=== PATIENT | female | born 1990 | race Caucasian/White ===

== ENCOUNTER 2018-09-17 10:11 | Emergency (ER) | payer OTHER ==
[2018-09-17 10:16] VITALS: BP 148/90; PULSE 90; RESP 18; TEMP 98.1
--- NOTE | 2018-09-17 10:27 | ED ---
General Adult HPI - General Chief complaint: Dental/Oral Stated complaint: dental pain/facial swelling Time Seen by Provider: 09/17/18 10:19 Source: patient, RN notes reviewed Mode of arrival: ambulatory Limitations: no limitations - History of Present Illness Initial comments: Patient's a 28-year-old female presented to the emergency room today with a chief complaint of increased dental pain over left lower side. Patient does admit to pain swelling. Patient states that he's been no drainage or foul taste. She does admit that she's had 2 bad tooth in this area but has not had time to get to surgeon to have them removed. Patient denies any other complaints or symptoms. Patient denies any recent fever, chills, shortness of breath, chest pain, back pain, abdominal pain, nausea or vomiting, headaches or visual changes, or any other complaints. - Related Data Home Medications Medication Instructions Recorded Confirmed Ywh-Saga-Xrdhg Acid 1 cap PO DAILY 12/12/15 12/12/15 [-U Capsule] Previous Rx's Medication Instructions Recorded Acetaminophen-Codeine 300-30mg 2 each PO Q4HR PRN #30 tab 12/14/15 [Tylenol w/codeine #3] Ibuprofen [Motrin] 600 mg PO Q6HR PRN #30 tab 12/14/15 Ibuprofen [Motrin] 600 mg PO Q6HR PRN #40 day 09/17/18 Penicillin V Potassium [Pen Vee K] 500 mg PO QID #40 tablet 09/17/18 Allergies Allergy/AdvReac Type Severity Reaction Status Date / Time No Known Allergies Allergy Verified 09/17/18 10:14 Review of Systems ROS Statement: Those systems with pertinent positive or pertinent negative responses have been documented in the HPI. ROS Other: All systems not noted in ROS Statement are negative. Past Medical History Past Medical History: No Reported History Additional Past Medical History / Comment(s): Obstetrical history: First was a section at 33 weeks for severe preeclampsia. This is her second . She's had care with me since 21 weeks. She did miss several appointments. Her blood type is A+, antibodies negative, rubella immune, RPR nonreactive, hepatitis B-, toxoplasmosis negative. Abnormal 1 hour but normal 3 hour glucose tolerance test. GBS negative History of Any Multi-Drug Resistant Organisms: None Reported Past Surgical History: Section Additional Past Surgical History / Comment(s): finger. Open Heart Surgery for Endocarditis at 12 years old Past Anesthesia/Blood Transfusion Reactions: No Reported Reaction Past Psychological History: No Psychological Hx Reported Smoking Status: Current every day smoker Past Alcohol Use History: None Reported Past Drug Use History: None Reported - Past Family History Mother Family Medical History: No Reported History General Exam - General Exam Comments Initial Comments: General: The patient is awake and alert, in no distress, and does not appear acutely ill. Eye: Pupils are equal, round and reactive to light. Extra-ocular movements are intact. No nystagmus. There is normal conjunctiva bilaterally. No signs of icterus. Ears, nose, mouth and throat: There are moist mucous membranes and no oral lesions. Patient does have tenderness over tooth #18 and 19. No dental abscess to drain. Uvula midline. Neck: The neck is supple, there is no tenderness or JVD. Musculoskeletal: Normal ROM, no tenderness. Sensation intact. Strength 5/5. Pulses equal bilaterally 2+. Neurological: A&O x 3. CN II-XII intact, There are no obvious motor or sensory deficits. Coordination appears grossly intact. Speech is normal. Skin: Skin is warm and dry and no rashes or lesions are noted. Psychiatric: Cooperative, appropriate mood & affect, normal judgment. Limitations: no limitations Course Vital Signs 09/17/18 10:14 Temperature 98.1 F Pulse Rate 90 Respiratory 18 Rate Blood Pressure 148/90 O2 Sat by Pulse 100 Oximetry Medical Decision Making - Medical Decision Making The patient will be started on antibiotics. She is advised to use hot and cold compresses as needed along with T bag of the inside of gumline with Orajel over- the-counter for symptoms. Patient advised follow-up with oral surgeon. Advised return if symptoms increase worsen. Disposition Clinical Impression: Dental abscess Disposition: HOME SELF-CARE Condition: Good Instructions: Dental Abscess (ED) Additional Instructions: Please follow-up with dentist and use antibiotic and pain medication as discussed. [facility], [place] [address] [phone]) (existing clients only) For new clients: [phone] [facility] Pay $50 for x-rays and the rest discovered [phone] Prescriptions: Ibuprofen [Motrin] 600 mg PO Q6HR PRN #40 day PRN Reason: Pain Penicillin V Potassium [Pen Vee K] 500 mg PO QID #40 tablet Is patient prescribed a controlled substance at d/c from ED?: No Referrals: None,Stated [Primary Care Provider] - 1-2 days Time of Disposition: 10:26
== END 2018-09-17 10:30 | disposition home or self-care (01) ==
LOC: EC 10:11
DX: K04.7 Periapical abscess without sinus (principal); F17.200 Nicotine dependence, unspecified, uncomplicated
CPT/HCPCS: 99282

== ENCOUNTER → 2024-05-18 | Outpatient (CLI) | payer OTHER ==
[2024-05-18 20:59] LABS: Basophils # (A) 0.04 X 10*3/uL (0.00-0.10); Basophils % (A) 0.5 %; Eosinophils # (A) 0.26 X 10*3/uL (0.04-0.35); HCT 40.6 % (37.2-46.3); HGB 13.5 g/dL (12.0-15.0); Lymphocytes # (A) 2.33 X 10*3/uL (0.90-5.00); Lymphocytes % (A) 26.5 %; MCH 28.7 pg (27.0-32.0); MCHC 33.3 g/dL (32.0-37.0); MCV 86.4 FL (80.0-97.0); Mean Platelet Volume 10.1 FL (9.5-12.2); Monocytes # (A) 0.86 X 10*3/uL (0.20-1.00); Monocytes % (A) 9.8 %; NRBC Per 100 WBC 0 X 10*3/uL (0.00-0.01); Neutrophils # (A) 5.27 X 10*3/uL (1.80-7.70); Neutrophils % (A) 59.9 %; Platelet Count 274 X 10*3/uL (140-440); RDW 13.8 % (11.5-14.5); WBC 8.79 X 10*3/uL (4.50-10.00)
== END | disposition home or self-care (01) ==
LOC: LABWHC1 13:55
PROVIDERS: ATTEND Obstetrics & Gynecology
DX: Z01.812 Encounter for preprocedural laboratory examination (principal); D06.9 Carcinoma in situ of cervix, unspecified
CPT/HCPCS: 36415; 85025

== ENCOUNTER 2024-07-20 09:50 | Day surgery (SDC) | payer OTHER ==
[2024-07-16 10:56] VITALS: BMI 25.7
--- NOTE | 2024-07-20 07:41 | P.HPOB ---
History of Present Illness H&P Date: 07/20/24 Chief Complaint: JULISA III 34 year old with severe cervical dysplasia presents for LEEP. Review of Systems All systems: negative Constitutional: Denies chills, Denies fever Eyes: denies blurred vision, denies pain Ears, nose, mouth and throat: Denies headache, Denies sore throat Cardiovascular: Denies chest pain, Denies shortness of breath Respiratory: Denies cough Gastrointestinal: Denies abdominal pain, Denies diarrhea, Denies nausea, Denies vomiting Genitourinary: Denies dysuria, Denies hematuria Musculoskeletal: Denies myalgias Integumentary: Denies pruritus, Denies rash Neurological: Denies numbness, Denies weakness Psychiatric: Denies anxiety, Denies depression Endocrine: Denies fatigue, Denies weight change Past Medical History Past Medical History: No Reported History Additional Past Medical History / Comment(s): hx. 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 Open Heart Surgery for Endocarditis age 12 Past Anesthesia/Blood Transfusion Reactions: No Reported Reaction Smoking Status: Current every day smoker - Past Family History Mother Family Medical History: No Reported History Medications and Allergies Home Medications Medication Instructions Recorded Confirmed Type Ibuprofen [Motrin] 600 mg PO Q6HR PRN #40 day 09/17/18 07/16/24 Rx Acetaminophen Tab [Tylenol Tab] 1,000 mg PO Q6HR PRN 05/13/24 07/16/24 History Buprenorphine/Naloxone 8Mg/2Mg 1 film SL QAM 05/13/24 07/16/24 History [Suboxone 8-2Mg Film] Dextroamphetamine/Amphetamine 20 mg PO BID 05/13/24 07/16/24 History [Adderall] Allergies Allergy/AdvReac Type Severity Reaction Status Date / Time No Known Allergies Allergy Verified 07/16/24 10:44 Exam Osteopathic Statement: *. No significant issues noted on an osteopathic structural exam other than those noted in the History and Physical/Consult. HEart: RRR Lungs: CTAB Abdomen: soft, nontender eXtremeties: neg rika's Assessment and Plan (1) Menorrhagia Status: Acute Code(s): N92.0 - EXCESSIVE AND FREQUENT MENSTRUATION WITH REGULAR CYCLE SNOMED Code(s): 206364269 Plan: 1. LUIS
[~2024-07-20 09:50] MED LIST: Pre Op ABX Message 1 EACH MISC MISCELLANE ONE
[2024-07-20] MEDS ORDERED: HYDROmorphone 0.5 MG/0.5 ML SYRINGE IVP PRN (10:04)
[2024-07-20] MEDS: IV FLUID CONTINUATION 1,000 ML IV ONE (10:37)
[2024-07-20] MEDS: LACTATED RINGERS 1,000 ML IV SCH (10:37)
[2024-07-20] MEDS: ONDANSETRON 4 MG/2 ML VIAL IVP ONE (10:40)
[2024-07-20] MEDS: DEXAMETHASONE SOD PHOSPHATE 4 MG/ML 1 ML VIAL IV ONE (10:41)
[2024-07-20] MEDS: SCOPOLAMINE 1 MG/72 HR PATCH TRANSDERM ONE (10:41)
[2024-07-20] MEDS: MIDAZOLAM 2 MG/2 ML VIAL IV PRN (10:42)
[2024-07-20] MEDS ORDERED: MIDAZOLAM 2 MG/2 ML VIAL ONE (10:47)
[2024-07-20] MEDS ORDERED: LIDOCAINE 1% INJ 10MG/ML (20 ML MDV) ONE (10:47)
[2024-07-20] MEDS ORDERED: PROPOFOL 10 MG/ML 20 ML VIAL IV ONE (10:47)
[2024-07-20] MEDS ORDERED: fentaNYL (PF) 50 MCG/ML 2 ML AMP ONE (10:47)
[2024-07-20] MEDS ORDERED: KETOROLAC 15 MG/ML 1 ML VIAL ONE (10:47)
[2024-07-20] MEDS: FERRIC SUBSULFATE (MONSELS) JAR TOPICAL ONE (11:11)
--- NOTE | 2024-07-20 11:21 | P.OP ---
Date of Procedure: 07/20/24 Preoperative Diagnosis: 1. severe dysplasia Postoperative Diagnosis: same Procedure(s) Performed: LEEP Anesthesia: MAC (LMA) Surgeon: Manjula Vazquez Estimated Blood Loss (ml): 5 IV fluids (ml): 300 Urine output (ml): 20 Pathology: other (cervical cone) Condition: stable Disposition: PACU Operative Findings: normal cervix Description of Procedure: patient is taken to the operating room where general anesthesia was obtained without difficulty. She is prepped draped in normal sterile fashion dorsal lithotomy position, legs placed in the candycane stirrups. Bladder was drained of all urine. [place] speculum was placed in vagina. The 2 cm loop cautery was used to first obtain a piece of the anterior lip and then to go back and scraped a piece of the posterior lip of the cervix. These specimens were sent to pathology. The crater of the cervix was then cauterized with the ball cautery. Monsel's was placed. Patient tolerated procedure well. Sponge management counts correct 2. She was taken to recovery in stable condition.
[2024-07-20 11:27] VITALS: TEMP 97.4
[2024-07-20] MEDS: ENALAPRILAT 1.25 MG/ML 1 ML VIAL IVP STA (11:50)
[2024-07-20 13:28] VITALS: RESP 16
[2024-07-20 13:30] VITALS: BP 163/98; PULSE 83
== END 2024-07-20 13:41 | disposition home or self-care (01) ==
LOC: OR 09:50
PROVIDERS: ATTEND Obstetrics & Gynecology
DX: D06.0 Carcinoma in situ of endocervix (principal); N92.0 Excessive and frequent menstruation with regular cycle; F17.200 Nicotine dependence, unspecified, uncomplicated; Z79.899 Other long term (current) drug therapy
CPT/HCPCS: 81025; 88307; 88342